=== PATIENT | female | born 1940 | race Caucasian/White ===

== ENCOUNTER 2016-10-11 19:27 | Emergency (ER) | payer MEDICARE, BC ==
[~2016-10-11] VITALS: Ht 160 cm; Wt 58.3 kg
[~2016-10-11 19:27] MED LIST: ASPI-558 PO; CEPH500T PO; CYCL-375 PO; GALA4TAB; HYDR-4246 PO; MEMA10TA21; MULT-806 PO; OMEP20CA10 PO; ONDA-55 PO
[2016-10-11 19:30] VITALS: Ht 160 cm; Wt 58.3 kg
--- NOTE | 2016-10-11 19:38 | NUR ---
PROVIDER DR. MENSAH AT BEDSIDE FOR EXAM.
[2016-10-11] MEDS ORDERED: NORMAL SALINE 1,000 ML IV ONE (19:40)
[2016-10-11] MEDS ORDERED: ASPIRIN 81 MG CHEWABLE TABLET PO ONE (19:45)
[2016-10-11] MEDS ORDERED: G.I. COCKTAIL 30ml PO ONE (19:45)
--- NOTE | 2016-10-11 19:46 | ERPDOC ---
Departure Disposition Decision Date: Oct 11, 2016 Disposition Decision Time: 20:55 Disposition: 01 DISCHARGED HOME, SELF-CARE Impression Impression Impression: Primary Impression: GERD (gastroesophageal reflux disease) Esophagitis presence: with esophagitis Qualified Codes: K21.0 - Gastro- esophageal reflux disease with esophagitis Severity: Severe Condition: Improved Seen By: Physician only Referrals: SHABANA ELLIS II, MD (Family) 1 Week Patient Instructions: Gastroesophageal Reflux Disease (ED) Problems/Meds/Labs Reviewed?: Yes Medications reviewed and manag: Yes Additional Instructions: Take your omeprazole in the evening and in the morning. Use the sucralfate if you continue to have pain. Follow up with your doctor in the next week. If your symptoms don't improve, you will need more work up. Follow up care ordered?: Yes Mental Status: Alert, Oriented Scripts Sucralfate (Sucralfate) 1 Gm Tablet 1 GM PO QID Y for PAIN for 30 Days, #120 TAB Take 1 tablet, by mouth, 4 times a day as needed. Prov: NOVEMBERMAGDI DO 10/11/16 HPI - Chest Pain General Chief Complaint: Chest Pain Stated Complaint: CHEST PAIN Time Seen by Provider: 19:28 Source: patient, family Exam Limitations: dementia HPI - Chest Pain Initial Comments 76yo woman presented to the ED for chest pain. Pt has had one week of epigastric , sharp 'chest pain' that lasts a few seconds then resolves. Pt has not been seen for this before. Has a h/o GERD; takes daily 20mg omeprazole. No pain now, but did have pain 30min ago when they left home. Sx started tonight 2 hrs ago. Occurred At: home Onset/Timing: Rapid Duration: 1-3 hrs Pain/Severity Scale: Now & Worst: 6/10 Activities at Onset/Context: none Location: epigastric Quality: sharp, stabbing Associated Symptoms: denies symptoms Chest Pain Radiation: no radiation Nitro Today/Relief: no nitro taken today Aspirin Treatment Today: 81 mg x 4, provided by ED Prior Chest Pain/Cardiac Nuno: non-cardiac Hx of Similar Symptoms: No Allergies: Coded Allergies: Sulfa (Sulfonamide Antibiotics) (Verified Allergy, Unknown, 10/11/16) tramadol (Verified Adverse Reaction, Mild, N/V, 10/11/16) Past History Patient Medical History (1) chest twinges-intermittent Past Medical History Metabolic: cancer, hypercholesterolemia Cardiac: CAD GI: GERD Female: UTI (Chronic) Psychological: dementia Surgical History Reproductive/: other, tubal ligation Vaccines Hx Influenza Vaccination: Yes (2009) Hx Pneumococcal Vaccination: Yes (2009) Social History Sexuality: male partner Review of Systems Unable to Obtain ROS Due to: dementia Cardiovascular Cardiac: chest pain All other Systems All Other Systems: Reviewed and Negative Physical Exam General General Nourishment: well nourished, well developed, appears stated age, no acute distress, adult, thin General Body Habitus: well groomed Vitals and Pain First Documented Vital Signs Date Time Temp Pulse Resp B/P Pulse Ox O2 Delivery O2 Flow Rate FiO2 10/11/16 19:30 83 14 203/92 97 10/11/16 19:57 Room Air 10/11/16 21:13 98.2 Weight: Kilograms: Height (feet): 5 Height (inches): 2 Triage Pain Scale: RN VS reviewed by Provider: Yes Normal Exams: Head: Normocephalic w/o trauma Eyes: Pupils are PERRLA w/ EOMI, No scleral icterus, irritation ENMT: No facial trauma, nasal exudates, pharyngeal erythema Neck: Full range of motion, without adenopathy, JVD Lymphatic: No lymphadenopathy Musculoskeletal: No tenderness, or deformity noted Integumentary: No rashes, hives, or bruising noted Neurologic: Patient is alert, and oriented Psychiatric: Patient exhibits, appropriate attention Respiratory (brief) Respiratory: FOUND: clear all stone, equal bilaterally, symmetrical, NOT FOUND : rales, wheezes Cardiovascular (brief) Cardiac: FOUND: regular rate, regular rhythm, NOT FOUND: click, gallop, murmur , pedal edema, peripheral edema, rub Capillary Refill: <2 sec Pulses: all distal extremities, equal, strong Abdomen (brief) Abdominal Brief: FOUND: bowel normo active x4, soft, NOT FOUND: distended, hepatosplenomegaly, pulsatile mass, tender Differential Diagnoses Considering: Acute [place], Anxiety/Panic, Angina, Costochondritis, Esophageal Spasm , GERD, Pneumothorax, Pneumonia, PSVT, Pulmonary Edema, Muscle Spasm, Trigger Points Progress Results/Orders Orders Procedure Category Date Status Time Cbc W/Auto LAB 10/11/16 Complete Diff-Reflex Manual 19:40 Bmp - Basic Metabolic LAB 10/11/16 Complete Panel 19:40 Probnp LAB 10/11/16 Complete 19:40 Troponin I W LAB 10/11/16 Complete Hemolysis Index 19:40 INR LAB 10/11/16 Complete 19:40 EKG EKG 10/11/16 Taken 19:40 Chest 1 View RAD 10/11/16 Taken 19:40 Iv Lock (Ed Only) EDM 10/11/16 Transmitted 19:40 Normal Saline (Normal PHA 10/11/16 Complete Saline Iv) 19:40 Aspirin (Asa) PHA 10/11/16 Complete 19:45 G.I. Cocktail PHA 10/11/16 Complete (/Maalox/Lidocaine 19:45 Lab Results Laboratory Tests Test 10/11/16 19:36 White Blood Count 6.6T/MM3 Red Blood Count 4.75M/MM3 Hemoglobin 14.6GM/DL Hematocrit 45.4% Mean Corpuscular Volume 95.6UM3 Mean Corpuscular Hemoglobin 30.7UUG Mean Corpuscular Hemoglobin Concent 32.2GM/DL RDW Standard Deviation 43.8FL Platelet Count 229T/MM3 Mean Platelet Volume 10.8UM3 Immature Granulocyte % (Auto) 0.2% Neutrophils (%) (Auto) 52.8% Lymphocytes (%) (Auto) 35.7% Monocytes (%) (Auto) 9.0% Eosinophils (%) (Auto) 2.0% Basophils (%) (Auto) 0.3% Absolute Immature Granulocyte (auto 0.01T/MM3 Absolute Neutrophils (auto) 3.5T/MM3 Absolute Lymphocytes (auto) 2.3T/MM3 Absolute Monocytes (auto) 0.6T/MM3 Absolute Eosinophils (auto) 0.1T/MM3 Absolute Basophils (auto) 0.0T/MM3 Prothromb Time International Ratio 1.06 Turbidity < 20 Sodium Level 147MEQ/L Potassium Level 3.8MEQ/L Chloride Level 113MEQ/L Carbon Dioxide Level 24MEQ/L Anion Gap 10MEQ/L Blood Urea Nitrogen 11.0MG/DL Creatinine 0.7MG/DL Glomerular Filtration Rate Calc 81 BUN/Creatinine Ratio 16RATIO Glucose Level 149MG/DL Calculated Osmolality 284MOSM/KG Calcium Level 8.8MG/DL Icterus Index < 2 Troponin I < 0.012ng/ml GR-Yat-D-Type Natriuretic Peptide 898PG/ML Chemistry Specimen Hemolysis < 15 Medications Current ED Medications Sodium Chloride (Normal Saline IV) 1,000 ml @ 125 mls/hr Q8H ONCE IV Last administered on 10/11/16 19:48; Start 10/11/16 at 19:40; Stop 10/11/16 at 21:39; Status DC Aspirin (ASA) 324 mg O ONCE PO Last administered on 10/11/16 19:34; Start 10/11 at 19:45; Stop 10/11/16 at 19:46; Status DC Pharmacy Profile Note (/Maalox/ Lidocaine Soln) 30 ml O ONCE PO Last administered on 10/11/16 19:46; Start 10/11/16 at 19:45; Stop 10/11/16 at 19:46; Status DC Progress Progress No evidence of [place], PTX, PNA, PE, or aortic dissection on Hx, PE, or labs/rads. Based on hx, most likely uncontrolled reflux/gastritis/hiatus hernia. Discussed dx, prognosis, and rx with pt and family who all voiced understanding. Will need to f/u with PCM to determine efficacy of proposed tx and continue work up as outpt. Will d/c to home. EKG EKG : Rate: 60-100 Rhythm: sinus [place]: normal QRS: normal Intervals: normal ST/T: non-specific changes Interpreted by: signing physician Xray Xray : Xray: CXR Portable Interpretation: Normal, Interpreted by MAGDI Hernandez DO Oct 11, 2016 19:46
[2016-10-11 19:51] LABS: BASOPHILS % (AUTO) 0.3 % (0-2); EOSINOPHILS # (AUTO) 0.1 T/MM3 (0-0.5); HCT - HEMATOCRIT 45.4 % (36-46); HGB - HEMOGLOBIN 14.6 GM/DL (12-16); IMMATURE GRANULOCYTE # (AUTO) 0.01 T/MM3 (0.00-0.03); IMMATURE GRANULOCYTE % (AUTO) 0.2 % (0.0-0.5); INR 1.06 (0.76-1.04); LYMPHOCYTES # (AUTO) 2.3 T/MM3 (1-4.8); LYMPHOCYTES % (AUTO) 35.7 % (23-45); MEAN CORPUSCULAR HGB 30.7 UUG (26-34); MEAN CORPUSCULAR HGB CONC(MCHC 32.2 GM/DL (31-37); MEAN CORPUSCULAR VOLUME 95.6 UM3 (80-100); MEAN PLATELET VOLUME 10.8 UM3 (9.4-12.4); MONOCYTES # (AUTO) 0.6 T/MM3 (0-0.8); NEUTROPHILS #(AUTO)-ABSOLUTE 3.5 T/MM3 (1.8-7.7); NEUTROPHILS % (AUTO) 52.8 % (33-66); PROTHROMBIN TIME 11.5 SEC (9.31-12.49); RED BLOOD COUNT 4.75 M/MM3 (4.00-5.20); WBC - WHITE BLOOD COUNT 6.6 T/MM3 (4.5-11.0)
--- NOTE | 2016-10-11 19:53 | NUR ---
XRAY PORTABLE XRAY AT BEDSIDE.
[2016-10-11 19:56] LABS: ANION GAP 10 MEQ/L (5-15); BUN/CREATININE RATIO 16 RATIO (6-26); CALCIUM 8.8 MG/DL (8.4-10.2); CHLORIDE 113 MEQ/L (98-107); CO2 - CARBON DIOXIDE 24 MEQ/L (22-30); CREATININE 0.7 MG/DL (0.7-1.2); GLOMERULAR FILTRATION RATE 81; GLUCOSE 149 MG/DL (65-110); POTASSIUM 3.8 MEQ/L (3.6-5); SODIUM 147 MEQ/L (134-144)
[2016-10-11] MEDS ORDERED: QUET25TA73 PO (20:06)
[2016-10-11] MEDS ORDERED: omega 3 PO (20:06)
[2016-10-11] MEDS ORDERED: CHOL100018 PO (20:06)
[2016-10-11 20:27] LABS: PROBNP 898 PG/ML (0-175)
--- NOTE | 2016-10-11 20:44 | NUR ---
PROVIDER DR. MENSAH AT BEDSIDE TO SPEAK WITH PT.
[2016-10-11] MEDS ORDERED: SUCR1TAB PO (20:57)
[2016-10-11 21:13] VITALS: BP 170/78; PULSE 68; RESP 16; TEMP 98.2; O2SAT 97
--- NOTE | 2016-10-11 21:13 | NUR ---
DISCHARGE WRITTEN INSTRUCTIONS WITH SUCRALFATE RX REVIEWED AND SENT WITH PT AND SPOUSE. PT AND SPOUSE VERBALIZE UNDERSTANDING OF DI AND MEDICATION, DENIES QUESTIONS. PT CONTINUES TO DENY CHEST DISCOMFORT, REPORTING PAIN "MAY HAVE IMPROVED" AFTER GI COCKTAIL. PT AMBULATES OUT OF ER WITH STEADY GAIT ACCOMP BY SPOUSE AT THIS TIME.
--- NOTE | 2016-10-12 07:55 | DI ---
Indication: ITS.REASON: Chest pain for 4 to 5 days PROCEDURE: CHEST 1 VIEW: Encounter: Initial Comparison: May 23, 2013 FINDINGS: The lungs are clear. There is no abnormal airspace opacity, pleural effusion or pneumothorax identified. The heart size, pulmonary vasculature and mediastinum are unchanged. Hiatal hernia. IMPRESSION: No acute cardiopulmonary abnormality. .
== END 2016-10-11 21:13 | disposition home or self-care (01) ==
LOC: ED 19:27
DX: K21.0 Gastro-esophageal reflux disease with esophagitis (principal)
CPT/HCPCS: 71010; 80048; 83880; 84484; 85025; 85610; 93005; 96360; 99284; A9270; J7030; J7999